=== PATIENT | female | born 1975 | race Two or more races ===

== ENCOUNTER 2022-07-22 14:12 | Outpatient (CLI) | payer BC | END 2022-07-22 19:14 | disposition home or self-care (01) | LOC: SNM 14:12 | PROVIDERS: ATTEND Urology Pediatric Urology | DX: C64.2 Malignant neoplasm of left kidney, except renal pelvis (principal) | CPT/HCPCS: 78708; A9562 ==

== ENCOUNTER 2022-07-24 06:50 | Outpatient (CLI) | payer BC | END 2022-07-24 19:39 | disposition home or self-care (01) | LOC: SNM 06:50 | PROVIDERS: ATTEND Urology Pediatric Urology | DX: D49.512 Neoplasm of unspecified behavior of left kidney (principal) | CPT/HCPCS: 78306; A9503 ==